=== PATIENT | male | born 1955 | race African-American/Black ===

== ENCOUNTER 2017-10-29 12:06 | Emergency (ER) | payer MEDICARE, MEDICAID ==
[2017-10-29 13:23] LABS: ANION GAP 31 (8-16); CALCIUM 9.1 mg/dl (8.4-10.2); CARBON DIOXIDE 13 mmol/L (21-31); CHLORIDE 112 mmol/L (97-110); GLUCOSE 80 mg/dl (70-220); SODIUM 148 mmol/L (135-144)
[2017-10-29 13:29] LABS: POTASSIUM 7.6 mmol/L (3.5-5.1)
[2017-10-29 13:30] LABS: CREATININE 22.18 mg/dl (0.61-1.24)
[2017-10-29 13:33] LABS: BLOOD UREA NITROGEN 144 mg/dl (7-20)
[2017-10-29] MEDS: CA CHLORIDE 10% 10 ML SYRINGE IV (13:54)
[2017-10-29] MEDS: INSULIN REGULAR, HUMAN 100 UNIT/1 ML 3ML VIAL IV (13:54)
[2017-10-29] MEDS: NA POLYST SULFON 15 GM/60 ML BTL PO (13:54)
[2017-10-29] MEDS: ALBUTEROL 0.5% (NEB) 2.5 MG/0.5 ML AMP INH (13:54)
[2017-10-29] MEDS: NA BICARBONATE 8.4% 50 ML SYG IV (13:54)
[2017-10-29] MEDS: DEXTROSE 50% 50 ML SYRINGE IV (16:13)
== END 2017-10-29 20:50 | disposition home or self-care (01) ==
LOC: E/R 12:06
DX: N18.6 End stage renal disease (principal); E87.5 Hyperkalemia; I12.0 Hypertensive chronic kidney disease with stage 5 chronic kidney disease or end stage renal disease; F17.210 Nicotine dependence, cigarettes, uncomplicated; R40.2142 Coma scale, eyes open, spontaneous, at arrival to emergency department; R40.2252 Coma scale, best verbal response, oriented, at arrival to emergency department; R40.2362 Coma scale, best motor response, obeys commands, at arrival to emergency department; Z99.2 Dependence on renal dialysis; Z98.61 Coronary angioplasty status; Z79.82 Long term (current) use of aspirin
CPT/HCPCS: 80048; 90935; 93005; 99284-25

== ENCOUNTER 2017-12-18 08:01 | Inpatient (IN) | payer MEDICARE, MEDICAID ==
[2017-12-18 09:05] LABS: ADD MAN DIFF? NO
[2017-12-18 09:12] LABS: BASOPHILS % 0.3 % (0.0-2.0); EOSINOPHILS % 0.1 % (0.0-7.0); HEMATOCRIT 29.7 % (42.0-52.0); HEMOGLOBIN 9.2 g/dl (14.0-18.0); LYMPHOCYTES # 0.7 10^3/ul (0.8-2.9); LYMPHOCYTES % 6.1 % (15.0-51.0); MEAN CORPUSCULAR HEMOGLOBIN 32.7 pg (29.0-33.0); MEAN CORPUSCULAR VOLUME 105.7 fl (82.0-101.0); MONOCYTE # 1.4 10^3/ul (0.3-0.9); MONOCYTES % 11.7 % (0.0-11.0); NEUTROPHIL # 9.4 10^3/ul (1.6-7.5); NEUTROPHILS % 80.8 % (39.0-77.0); NUCLEATED RED BLOOD CELLS # 0.1 10^3/ul (0.0-0.0); NUCLEATED RED BLOOD CELLS% 0.6 /100WBC (0.0-0.0); PLATELET COUNT 115 10^3/UL (140-415); POSITIVE DIFF @See below; RED BLOOD COUNT 2.81 10^6/ul (4.70-6.10); RED CELL DISTRIBUTION WIDTH 20.4 % (11.5-14.5)
[2017-12-18 09:12] LABS: WHITE BLOOD COUNT 11.7 10^3/ul (4.8-10.8)
[2017-12-18 09:25] LABS: LACTIC ACID 1.9 mmol/L (0.5-2.0)
[2017-12-18 09:26] LABS: ALANINE AMINOTRANSFERASE 35 IU/L (13-69); ALBUMIN 4.2 g/dl (3.3-4.9); ALBUMIN/GLOBULIN RATIO 1.16; ALKALINE PHOSPHATASE 79 IU/L (42-121); ANION GAP 22 (8-16); ASPARTATE AMINO TRANSFERASE 38 IU/L (15-46); BLOOD UREA NITROGEN 64 mg/dl (7-20); CALCIUM 10.4 mg/dl (8.4-10.2); CARBON DIOXIDE 24 mmol/L (21-31); CHLORIDE 100 mmol/L (97-110); CREATININE 10.98 mg/dl (0.61-1.24); GLUCOSE 113 mg/dl (70-220); SODIUM 141 mmol/L (135-144); TOTAL PROTEIN 7.8 g/dl (6.1-8.1)
[2017-12-18 09:33] LABS: AMMONIA < 9 umol/l (9-30)
[2017-12-18 09:36] LABS: TROPONIN-I 0.096 ng/ml (0.00-0.12)
[2017-12-18 09:37] LABS: INR 1.13; PARTIAL THROMBOPLASTIN TIME 39.7 Sec (25.0-35.0); PROTIME 14.7 Sec (11.9-14.9); PT RATIO 1.1
[2017-12-18 09:39] LABS: ACETAMINOPHEN < 10.0 ug/ml (10.0-30.0); ETHANOL < 10.0 mg/dl; POTASSIUM 5.2 mmol/L (3.5-5.1); SALICYLATE < 1.0 mg/dl (5.0-30.0)
[2017-12-18] MEDS: CEFTRIAXONE 1 GM/50 ML (PMX) 50 ML IVPB (12:47)
[2017-12-18] MEDS: VANCOMYCIN 1 GM (PMX) 250 ML IVPB (13:18)
[2017-12-18] MEDS: ACETAMINOPHEN 325 MG TAB PO (18:22)
[2017-12-18 21:14] LABS: HEPATITIS B SURFACE ANTIGEN NEGATIVE (NEGATIVE)
[2017-12-18 21:32] LABS: HEPATITIS B SURFACE ANTIBODY NEGATIVE (NEGATIVE)
[2017-12-18] MEDS ORDERED: ACETAMINOPHEN 325 MG TAB PO (22:30)
[2017-12-18 22:44] LABS: CREATINE KINASE 151 IU/L (23-200)
[2017-12-18 22:58] LABS: TROPONIN-I 0.101 ng/ml (0.00-0.12)
[2017-12-18] MEDS ORDERED: VANCOMYCIN IV PER PHARMACY XX (23:00)
[2017-12-19] MEDS: ACETAMINOPHEN 325 MG TAB PO (02:31)
[2017-12-19 05:34] LABS: HEMATOCRIT 29.2 % (42.0-52.0); MEAN CORPUSCULAR HEMOGLOBIN 32.1 pg (29.0-33.0); MEAN CORPUSCULAR HGB CONC 30.8 g/dl (32.0-37.0); MEAN CORPUSCULAR VOLUME 104.3 fl (82.0-101.0); MEAN PLATELET VOLUME 12.7 fl (7.4-10.4); NUCLEATED RED BLOOD CELLS% 0.6 /100WBC (0.0-0.0); PLATELET COUNT 104 10^3/UL (140-415); POSITIVE DIFF @See below; RED CELL DISTRIBUTION WIDTH 19.9 % (11.5-14.5)
[2017-12-19 05:34] LABS: WHITE BLOOD COUNT 8.9 10^3/ul (4.8-10.8)
[2017-12-19 05:51] LABS: CREATINE KINASE 129 IU/L (23-200)
[2017-12-19 05:56] LABS: ANION GAP 22 (8-16); BLOOD UREA NITROGEN 53 mg/dl (7-20); CALCIUM 10.6 mg/dl (8.4-10.2); CARBON DIOXIDE 24 mmol/L (21-31); CHLORIDE 100 mmol/L (97-110); CHOL/HDL RATIO 4.4 RATIO; CHOLESTEROL 170 mg/dl (100-200); GLUCOSE 132 mg/dl (70-220); HDL CHOLESTEROL 38 mg/dl (30-78); LDL CHOLESTEROL,CALCULATED 80 mg/dl; MAGNESIUM 2.2 mg/dl (1.7-2.5); PHOSPHORUS 8.5 mg/dl (2.5-4.9); POTASSIUM 4.7 mmol/L (3.5-5.1); SODIUM 141 mmol/L (135-144); TRIGLYCERIDES 261 mg/dl (0-149)
[2017-12-19 06:02] LABS: CK INDEX 1.1; TROPONIN-I 0.077 ng/ml (0.00-0.12)
[2017-12-19 06:07] LABS: CK-MB 1.42 ng/ml (0.0-2.4)
[2017-12-19 06:12] LABS: ADD MAN DIFF? YES
[2017-12-19 06:44] LABS: IRON 16 ug/dl (35-150)
[2017-12-19 06:55] LABS: % IRON SATURATION 9 % SAT (22-52); TOTAL IRON BINDING CAPACITY 171 ug/dl (241-421)
[2017-12-19] MEDS: SEVELAMER 800 MG TAB PO ×3 (07:35→17:37)
[2017-12-19 07:42] LABS: ANISOCYTOSIS 2+ (0-0); BAND NEUTROPHILS #M 0.4 10^3/ul (0.0-0.6); BAND NEUTROPHILS % (M) 5 % (0-4); ERYTHROBLAST% (NRBC) (M) 1 % (0-0); GIANT THROMBO% (M) 2 % (0-0); LYMPHOCYTES #M 0.5 10^3/ul (0.8-2.9); LYMPHOCYTES % (M) 6 % (15-51); MONOCYTE #M 0.7 10^3/ul (0.3-0.9); MONOCYTES % (M) 8 % (0-11); PLATELET ESTIMATE DECREASED; POIKILOCYTOSIS 1+ (0-0); POLYCHROMASIA 3+ (0-0); REACTIVE LYMPHOCYTES #M 0.3 10^3/ul (0.0-0.0); REACTIVE LYMPHOCYTES% (M) 4 % (0-0); SEG NEUT #M 6.9 10^3/ul (1.6-7.5); SEGMENTED NEUTROPHILS (M) % 77 % (39-77); SMUDGE%M 1 % (0-0)
[2017-12-19] MEDS: VITAMIN B COMPLEX/VIT C CAP PO (14:29)
[2017-12-19] MEDS: CINACALCET 30 MG TAB PO (14:30)
[2017-12-19] MEDS: BENAZEPRIL 20 MG TAB PO ×2 (14:30→20:28)
[2017-12-19] MEDS: ASPIRIN (EC) 81 MG TAB PO (14:30)
[2017-12-19] MEDS: ISOSORBIDE MONONITRATE(SR)30 MG TAB PO (14:33)
[2017-12-19] MEDS: CYANOCOBALAMIN 500 MCG TAB PO (14:33)
[2017-12-19] MEDS: ASCORBIC ACID 500 MG TAB PO (14:34)
[2017-12-19] MEDS: FOLIC ACID 1 MG TAB PO (14:34)
[2017-12-19] MEDS: SOD FERRIC GLUC COMPLX 125 MG in SOD CHLORIDE 0.9% 100 ML IVPB (17:32)
[2017-12-19] MEDS: CHOLECALCIFEROL 1,000 UNIT TAB PO (17:35)
[2017-12-19] MEDS: DOCUSATE SODIUM 100 MG CAP PO (20:27)
[2017-12-19] MEDS ORDERED: CEFEPIME 1GM/50 ML (PMX) 50 ML IVPB (21:00)
[2017-12-19] MEDS: EPOETIN 10000 UNITS/1 ML INJ (ESRD) SC (21:05)
[2017-12-19] MEDS: HEPARIN 5,000 UNIT/0.5 ML VIAL SC (21:06)
[2017-12-20 05:48] LABS: ADD MAN DIFF? NO
[2017-12-20 05:56] LABS: WHITE BLOOD COUNT 7.7 10^3/ul (4.8-10.8)
[2017-12-20 05:56] LABS: ABNORMAL IP MESSAGE 1; BASOPHILS % 0.3 % (0.0-2.0); EOSINOPHILS # 0.1 10^3/ul (0.0-0.5); EOSINOPHILS % 0.8 % (0.0-7.0); HEMATOCRIT 28.2 % (42.0-52.0); HEMOGLOBIN 8.2 g/dl (14.0-18.0); LYMPHOCYTES # 0.9 10^3/ul (0.8-2.9); LYMPHOCYTES % 11.9 % (15.0-51.0); MEAN CORPUSCULAR HEMOGLOBIN 32.3 pg (29.0-33.0); MEAN CORPUSCULAR HGB CONC 29.1 g/dl (32.0-37.0); MEAN PLATELET VOLUME 12.9 fl (7.4-10.4); MONOCYTE # 1.3 10^3/ul (0.3-0.9); MONOCYTES % 17.1 % (0.0-11.0); NEUTROPHIL # 5.4 10^3/ul (1.6-7.5); NEUTROPHILS % 69.3 % (39.0-77.0); NUCLEATED RED BLOOD CELLS # 0.1 10^3/ul (0.0-0.0); NUCLEATED RED BLOOD CELLS% 0.6 /100WBC (0.0-0.0); PLATELET COUNT 90 10^3/UL (140-415); POSITIVE DIFF @See below; RED BLOOD COUNT 2.54 10^6/ul (4.70-6.10)
[2017-12-20 06:22] LABS: ANION GAP 24 (8-16); BLOOD UREA NITROGEN 89 mg/dl (7-20); CALCIUM 9.8 mg/dl (8.4-10.2); CARBON DIOXIDE 19 mmol/L (21-31); CHLORIDE 96 mmol/L (97-110); CREATININE 9.95 mg/dl (0.61-1.24); GLUCOSE 122 mg/dl (70-220); POTASSIUM 4.7 mmol/L (3.5-5.1); SODIUM 134 mmol/L (135-144)
[2017-12-20 06:35] LABS: VANCOMYCIN,RANDOM < 5.0 ug/ml
[2017-12-20] MEDS: ISOSORBIDE MONONITRATE(SR)30 MG TAB PO (09:00)
[2017-12-20] MEDS: BENAZEPRIL 20 MG TAB PO ×2 (09:00→20:50)
[2017-12-20] MEDS: FOLIC ACID 1 MG TAB PO (09:14)
[2017-12-20] MEDS: VITAMIN B COMPLEX/VIT C CAP PO (09:15)
[2017-12-20] MEDS: CYANOCOBALAMIN 500 MCG TAB PO (09:15)
[2017-12-20] MEDS: ASPIRIN (EC) 81 MG TAB PO (09:15)
[2017-12-20] MEDS: ASCORBIC ACID 500 MG TAB PO (09:15)
[2017-12-20] MEDS: CHOLECALCIFEROL 1,000 UNIT TAB PO (09:15)
[2017-12-20] MEDS: CINACALCET 30 MG TAB PO (09:15)
[2017-12-20] MEDS: HEPARIN 5,000 UNIT/0.5 ML VIAL SC ×2 (09:25→21:10)
[2017-12-20] MEDS: SEVELAMER 400 MG TAB PO ×2 (12:26→17:35)
[2017-12-20] MEDS: HEPARIN 1000 UNITS/ML 10 ML INJ CATHETER (18:44)
[2017-12-20] MEDS: RIFAMPIN 300 MG CAP PO (20:48)
[2017-12-20] MEDS: VANCOMYCIN 1.25 GM in SOD CHLORIDE 0.9% 250 ML IVPB (20:48)
[2017-12-20] MEDS: DOCUSATE SODIUM 100 MG CAP PO (20:49)
[2017-12-21] MEDS: SOD FERRIC GLUC COMPLX 125 MG in SOD CHLORIDE 0.9% 100 ML IVPB ×2 (00:05→17:25)
[2017-12-21 05:35] LABS: ADD MAN DIFF? NO
[2017-12-21 05:36] LABS: ABNORMAL IP MESSAGE 1; BASOPHILS % 0.3 % (0.0-2.0); EOSINOPHILS % 0.3 % (0.0-7.0); HEMATOCRIT 26.5 % (42.0-52.0); LYMPHOCYTES # 0.7 10^3/ul (0.8-2.9); LYMPHOCYTES % 6.9 % (15.0-51.0); MEAN CORPUSCULAR HEMOGLOBIN 31.4 pg (29.0-33.0); MEAN CORPUSCULAR HGB CONC 30.2 g/dl (32.0-37.0); MEAN CORPUSCULAR VOLUME 103.9 fl (82.0-101.0); MONOCYTE # 1.9 10^3/ul (0.3-0.9); MONOCYTES % 19.9 % (0.0-11.0); NEUTROPHIL # 6.7 10^3/ul (1.6-7.5); NEUTROPHILS % 71.9 % (39.0-77.0); NUCLEATED RED BLOOD CELLS% 0.2 /100WBC (0.0-0.0); PLATELET COUNT 126 10^3/UL (140-415); POSITIVE DIFF @See below; RED BLOOD COUNT 2.55 10^6/ul (4.70-6.10); RED CELL DISTRIBUTION WIDTH 20.3 % (11.5-14.5)
[2017-12-21 05:36] LABS: WHITE BLOOD COUNT 9.4 10^3/ul (4.8-10.8)
[2017-12-21 06:21] LABS: ANION GAP 24 (8-16); BLOOD UREA NITROGEN 48 mg/dl (7-20); CALCIUM 9.5 mg/dl (8.4-10.2); CARBON DIOXIDE 25 mmol/L (21-31); CHLORIDE 102 mmol/L (97-110); CREATININE 6.57 mg/dl (0.61-1.24); GLUCOSE 129 mg/dl (70-220); POTASSIUM 4.6 mmol/L (3.5-5.1); SODIUM 146 mmol/L (135-144)
[2017-12-21] MEDS: HEPARIN 5,000 UNIT/0.5 ML VIAL SC ×2 (09:37→21:22)
[2017-12-21] MEDS: CHOLECALCIFEROL 1,000 UNIT TAB PO (09:38)
[2017-12-21] MEDS: VITAMIN B COMPLEX/VIT C CAP PO (09:38)
[2017-12-21] MEDS: CYANOCOBALAMIN 500 MCG TAB PO (09:38)
[2017-12-21] MEDS: ISOSORBIDE MONONITRATE(SR)30 MG TAB PO (09:38)
[2017-12-21] MEDS: RIFAMPIN 300 MG CAP PO (09:38)
[2017-12-21] MEDS: ASCORBIC ACID 500 MG TAB PO (09:38)
[2017-12-21] MEDS: ASPIRIN (EC) 81 MG TAB PO (09:38)
[2017-12-21] MEDS: BENAZEPRIL 20 MG TAB PO ×2 (09:38→21:21)
[2017-12-21] MEDS: FOLIC ACID 1 MG TAB PO (09:39)
[2017-12-21] MEDS: CINACALCET 30 MG TAB PO (09:39)
[2017-12-21] MEDS: SEVELAMER 400 MG TAB PO ×3 (09:39→17:23)
[2017-12-21] MEDS: EPOETIN 10000 UNITS/1 ML INJ (ESRD) SC (17:24)
[2017-12-21] MEDS: LACTOBACILLUS RHAMNOSUS CAP PO (21:20)
[2017-12-21] MEDS: FAMOTIDINE 20 MG TAB PO (21:21)
[2017-12-21] MEDS: DOCUSATE SODIUM 100 MG CAP PO (21:21)
[2017-12-22 06:09] LABS: ADD MAN DIFF? NO
[2017-12-22 06:17] LABS: BASOPHILS % 0.4 % (0.0-2.0); EOSINOPHILS # 0.1 10^3/ul (0.0-0.5); EOSINOPHILS % 1.2 % (0.0-7.0); HEMATOCRIT 22.7 % (42.0-52.0); LYMPHOCYTES # 0.8 10^3/ul (0.8-2.9); LYMPHOCYTES % 8.8 % (15.0-51.0); MEAN CORPUSCULAR HGB CONC 30.8 g/dl (32.0-37.0); MEAN CORPUSCULAR VOLUME 103.7 fl (82.0-101.0); MEAN PLATELET VOLUME 12.3 fl (7.4-10.4); MONOCYTE # 1.4 10^3/ul (0.3-0.9); MONOCYTES % 14.5 % (0.0-11.0); NEUTROPHIL # 7.1 10^3/ul (1.6-7.5); NEUTROPHILS % 73.9 % (39.0-77.0); NUCLEATED RED BLOOD CELLS% 0.2 /100WBC (0.0-0.0); PLATELET COUNT 161 10^3/UL (140-415); RED BLOOD COUNT 2.19 10^6/ul (4.70-6.10); RED CELL DISTRIBUTION WIDTH 20.2 % (11.5-14.5)
[2017-12-22 06:17] LABS: WHITE BLOOD COUNT 9.5 10^3/ul (4.8-10.8)
[2017-12-22 06:45] LABS: ALANINE AMINOTRANSFERASE 33 IU/L (13-69); ALBUMIN 3.5 g/dl (3.3-4.9); ALBUMIN/GLOBULIN RATIO 1.02; ALKALINE PHOSPHATASE 82 IU/L (42-121); ANION GAP 23 (8-16); ASPARTATE AMINO TRANSFERASE 18 IU/L (15-46); BILIRUBIN,INDIRECT 0.1 mg/dl (0-1.1); BILIRUBIN,TOTAL 0.1 mg/dl (0.2-1.3); BLOOD UREA NITROGEN 75 mg/dl (7-20); CALCIUM 9.3 mg/dl (8.4-10.2); CARBON DIOXIDE 22 mmol/L (21-31); CHLORIDE 103 mmol/L (97-110); CREATININE 8.88 mg/dl (0.61-1.24); GLUCOSE 125 mg/dl (70-220); POTASSIUM 4.8 mmol/L (3.5-5.1); SODIUM 143 mmol/L (135-144); TOTAL PROTEIN 6.9 g/dl (6.1-8.1)
[2017-12-22 06:47] LABS: INR 1.14; PROTIME 14.8 Sec (11.9-14.9); PT RATIO 1.2
[2017-12-22 07:51] LABS: HEMOGLOBIN A1C 5.4 % (0-5.9)
[2017-12-22] MEDS: CYANOCOBALAMIN 500 MCG TAB PO (08:27)
[2017-12-22] MEDS: SEVELAMER 400 MG TAB PO ×3 (08:28→17:36)
[2017-12-22] MEDS: VITAMIN B COMPLEX/VIT C CAP PO (08:28)
[2017-12-22] MEDS: BENAZEPRIL 20 MG TAB PO ×2 (08:28→21:16)
[2017-12-22] MEDS: CINACALCET 30 MG TAB PO (08:28)
[2017-12-22] MEDS: ASPIRIN (EC) 81 MG TAB PO (08:29)
[2017-12-22] MEDS: RIFAMPIN 300 MG CAP PO (08:29)
[2017-12-22] MEDS: LACTOBACILLUS RHAMNOSUS CAP PO ×2 (08:29→21:15)
[2017-12-22] MEDS: ASCORBIC ACID 500 MG TAB PO (08:29)
[2017-12-22] MEDS: FOLIC ACID 1 MG TAB PO (08:29)
[2017-12-22] MEDS: ISOSORBIDE MONONITRATE(SR)30 MG TAB PO (08:29)
[2017-12-22] MEDS: HEPARIN 5,000 UNIT/0.5 ML VIAL SC ×2 (08:31→21:14)
[2017-12-22] MEDS: ACETAMINOPHEN 325 MG TAB PO (09:45)
[2017-12-22] MEDS: CHOLECALCIFEROL 1,000 UNIT TAB PO (09:45)
[2017-12-22] MEDS: SOD FERRIC GLUC COMPLX 125 MG in SOD CHLORIDE 0.9% 100 ML IVPB (16:45)
[2017-12-22] MEDS: DOCUSATE SODIUM 100 MG CAP PO (21:15)
[2017-12-22] MEDS: FAMOTIDINE 20 MG TAB PO (21:15)
[2017-12-23 05:00] LABS: ADD MAN DIFF? NO
[2017-12-23 05:02] LABS: WHITE BLOOD COUNT 8.2 10^3/ul (4.8-10.8)
[2017-12-23 05:02] LABS: BASOPHILS % 0.2 % (0.0-2.0); EOSINOPHILS # 0.2 10^3/ul (0.0-0.5); EOSINOPHILS % 2.4 % (0.0-7.0); HEMATOCRIT 23.6 % (42.0-52.0); LYMPHOCYTES # 0.8 10^3/ul (0.8-2.9); LYMPHOCYTES % 9.6 % (15.0-51.0); MEAN CORPUSCULAR HEMOGLOBIN 31.3 pg (29.0-33.0); MEAN CORPUSCULAR HGB CONC 29.7 g/dl (32.0-37.0); MEAN CORPUSCULAR VOLUME 105.4 fl (82.0-101.0); MONOCYTE # 1.2 10^3/ul (0.3-0.9); MONOCYTES % 14.9 % (0.0-11.0); NEUTROPHIL # 5.8 10^3/ul (1.6-7.5); NEUTROPHILS % 71.2 % (39.0-77.0); PLATELET COUNT 244 10^3/UL (140-415); RED BLOOD COUNT 2.24 10^6/ul (4.70-6.10); RED CELL DISTRIBUTION WIDTH 20.4 % (11.5-14.5)
[2017-12-23 05:26] LABS: ALANINE AMINOTRANSFERASE 32 IU/L (13-69); ALBUMIN 3.5 g/dl (3.3-4.9); ALBUMIN/GLOBULIN RATIO 1.02; ALKALINE PHOSPHATASE 100 IU/L (42-121); ANION GAP 26 (8-16); ASPARTATE AMINO TRANSFERASE 11 IU/L (15-46); BLOOD UREA NITROGEN 94 mg/dl (7-20); CALCIUM 9.2 mg/dl (8.4-10.2); CARBON DIOXIDE 19 mmol/L (21-31); CHLORIDE 102 mmol/L (97-110); CREATININE 10.91 mg/dl (0.61-1.24); GLUCOSE 123 mg/dl (70-220); MAGNESIUM 2.8 mg/dl (1.7-2.5); PHOSPHORUS 7.6 mg/dl (2.5-4.9); POTASSIUM 4.6 mmol/L (3.5-5.1); SODIUM 142 mmol/L (135-144); TOTAL PROTEIN 6.9 g/dl (6.1-8.1)
[2017-12-23 05:27] LABS: VANCOMYCIN,RANDOM 13.5 ug/ml
[2017-12-23] MEDS: SEVELAMER 400 MG TAB PO ×3 (07:35→17:05)
[2017-12-23] MEDS: LACTOBACILLUS RHAMNOSUS CAP PO ×2 (08:15→20:30)
[2017-12-23] MEDS: VITAMIN B COMPLEX/VIT C CAP PO (08:15)
[2017-12-23] MEDS: CINACALCET 30 MG TAB PO (08:16)
[2017-12-23] MEDS: BENAZEPRIL 20 MG TAB PO ×3 (08:16→20:31)
[2017-12-23] MEDS: ISOSORBIDE MONONITRATE(SR)30 MG TAB PO ×2 (08:16→17:06)
[2017-12-23] MEDS: ASPIRIN (EC) 81 MG TAB PO (08:16)
[2017-12-23] MEDS: FOLIC ACID 1 MG TAB PO (08:16)
[2017-12-23] MEDS: CYANOCOBALAMIN 500 MCG TAB PO (08:16)
[2017-12-23] MEDS: RIFAMPIN 300 MG CAP PO (08:16)
[2017-12-23] MEDS: CHOLECALCIFEROL 1,000 UNIT TAB PO (08:17)
[2017-12-23] MEDS: ASCORBIC ACID 500 MG TAB PO (08:17)
[2017-12-23] MEDS: HEPARIN 5,000 UNIT/0.5 ML VIAL SC ×2 (08:17→20:35)
[2017-12-23 10:19] LABS: HEPATITIS B SURFACE ANTIGEN NEGATIVE (NEGATIVE)
[2017-12-23 11:48] LABS: IMMEDIATE SPIN CROSSMATCH 1 1
[2017-12-23] MEDS ORDERED: LIDOCAINE 1% (MDV) 20 ML INJ (15:26)
[2017-12-23] MEDS: ACETAMINOPHEN 325 MG TAB PO (17:05)
[2017-12-23] MEDS: SOD FERRIC GLUC COMPLX 125 MG in SOD CHLORIDE 0.9% 100 ML IVPB (17:05)
[2017-12-23] MEDS: VANCOMYCIN 1.25 GM in SOD CHLORIDE 0.9% 250 ML IVPB (18:37)
[2017-12-23] MEDS: DOCUSATE SODIUM 100 MG CAP PO (20:30)
[2017-12-23] MEDS: FAMOTIDINE 20 MG TAB PO (20:30)
[2017-12-24 06:50] LABS: ADD MAN DIFF? NO
[2017-12-24 06:58] LABS: ABNORMAL IP MESSAGE 1; BASOPHILS % 0.4 % (0.0-2.0); EOSINOPHILS # 0.2 10^3/ul (0.0-0.5); EOSINOPHILS % 2.4 % (0.0-7.0); HEMATOCRIT 28.5 % (42.0-52.0); HEMOGLOBIN 8.7 g/dl (14.0-18.0); LYMPHOCYTES # 0.7 10^3/ul (0.8-2.9); LYMPHOCYTES % 8.5 % (15.0-51.0); MEAN CORPUSCULAR HEMOGLOBIN 31.1 pg (29.0-33.0); MEAN CORPUSCULAR HGB CONC 30.5 g/dl (32.0-37.0); MEAN CORPUSCULAR VOLUME 101.8 fl (82.0-101.0); MEAN PLATELET VOLUME 11.6 fl (7.4-10.4); MONOCYTES % 12.3 % (0.0-11.0); NEUTROPHILS % 74.7 % (39.0-77.0); PLATELET COUNT 303 10^3/UL (140-415); POSITIVE DIFF @See below; RED CELL DISTRIBUTION WIDTH 22.8 % (11.5-14.5)
[2017-12-24 07:27] LABS: ANION GAP 22 (8-16); BLOOD UREA NITROGEN 55 mg/dl (7-20); CALCIUM 9.6 mg/dl (8.4-10.2); CARBON DIOXIDE 29 mmol/L (21-31); CHLORIDE 95 mmol/L (97-110); CREATININE 7.17 mg/dl (0.61-1.24); GLUCOSE 202 mg/dl (70-220); MAGNESIUM 2.1 mg/dl (1.7-2.5); POTASSIUM 4.3 mmol/L (3.5-5.1); SODIUM 142 mmol/L (135-144)
[2017-12-24] MEDS: LACTOBACILLUS RHAMNOSUS CAP PO ×2 (08:43→20:59)
[2017-12-24] MEDS: VITAMIN B COMPLEX/VIT C CAP PO (08:45)
[2017-12-24] MEDS: CINACALCET 30 MG TAB PO (08:46)
[2017-12-24] MEDS: RIFAMPIN 300 MG CAP PO (08:46)
[2017-12-24] MEDS: HEPARIN 5,000 UNIT/0.5 ML VIAL SC ×2 (08:46→21:00)
[2017-12-24] MEDS: ASCORBIC ACID 500 MG TAB PO (08:47)
[2017-12-24] MEDS: ISOSORBIDE MONONITRATE(SR)30 MG TAB PO (08:47)
[2017-12-24] MEDS: FOLIC ACID 1 MG TAB PO (08:47)
[2017-12-24] MEDS: CYANOCOBALAMIN 500 MCG TAB PO (08:47)
[2017-12-24] MEDS: ASPIRIN (EC) 81 MG TAB PO (08:47)
[2017-12-24] MEDS: BENAZEPRIL 20 MG TAB PO ×2 (08:48→21:00)
[2017-12-24] MEDS: SEVELAMER 400 MG TAB PO ×3 (08:51→17:44)
[2017-12-24] MEDS: CHOLECALCIFEROL 1,000 UNIT TAB PO (08:53)
[2017-12-24] MEDS: EPOETIN 10000 UNITS/1 ML INJ (ESRD) SC (17:45)
[2017-12-24] MEDS: DOCUSATE SODIUM 100 MG CAP PO (20:59)
[2017-12-24] MEDS: FAMOTIDINE 20 MG TAB PO (21:00)
[2017-12-25 06:33] LABS: ADD MAN DIFF? NO
[2017-12-25 06:42] LABS: BASOPHILS % 0.4 % (0.0-2.0); EOSINOPHILS # 0.3 10^3/ul (0.0-0.5); HEMATOCRIT 30.5 % (42.0-52.0); HEMOGLOBIN 9.3 g/dl (14.0-18.0); LYMPHOCYTES # 0.6 10^3/ul (0.8-2.9); LYMPHOCYTES % 7.2 % (15.0-51.0); MEAN CORPUSCULAR HEMOGLOBIN 31.2 pg (29.0-33.0); MEAN CORPUSCULAR HGB CONC 30.5 g/dl (32.0-37.0); MEAN CORPUSCULAR VOLUME 102.3 fl (82.0-101.0); MEAN PLATELET VOLUME 10.8 fl (7.4-10.4); MONOCYTE # 0.9 10^3/ul (0.3-0.9); MONOCYTES % 11.1 % (0.0-11.0); NEUTROPHIL # 6.5 10^3/ul (1.6-7.5); NEUTROPHILS % 76.4 % (39.0-77.0); PLATELET COUNT 363 10^3/UL (140-415); RED BLOOD COUNT 2.98 10^6/ul (4.70-6.10)
[2017-12-25 06:42] LABS: WHITE BLOOD COUNT 8.5 10^3/ul (4.8-10.8)
[2017-12-25 07:20] LABS: ANION GAP 25 (8-16); BLOOD UREA NITROGEN 77 mg/dl (7-20); CALCIUM 9.8 mg/dl (8.4-10.2); CARBON DIOXIDE 27 mmol/L (21-31); CHLORIDE 96 mmol/L (97-110); CREATININE 10.04 mg/dl (0.61-1.24); GLUCOSE 85 mg/dl (70-220); MAGNESIUM 2.6 mg/dl (1.7-2.5); SODIUM 143 mmol/L (135-144)
[2017-12-25] MEDS: SEVELAMER 400 MG TAB PO (08:49)
[2017-12-25] MEDS: RIFAMPIN 300 MG CAP PO (08:49)
[2017-12-25] MEDS: CINACALCET 30 MG TAB PO (08:49)
[2017-12-25] MEDS: CHOLECALCIFEROL 1,000 UNIT TAB PO (08:49)
[2017-12-25] MEDS: ASCORBIC ACID 500 MG TAB PO (08:50)
[2017-12-25] MEDS: CYANOCOBALAMIN 500 MCG TAB PO (08:50)
[2017-12-25] MEDS: ASPIRIN (EC) 81 MG TAB PO (08:50)
[2017-12-25] MEDS: HEPARIN 5,000 UNIT/0.5 ML VIAL SC ×2 (08:50→20:42)
[2017-12-25] MEDS: LACTOBACILLUS RHAMNOSUS CAP PO ×2 (08:50→20:38)
[2017-12-25] MEDS: FOLIC ACID 1 MG TAB PO (08:50)
[2017-12-25] MEDS: VITAMIN B COMPLEX/VIT C CAP PO (08:50)
[2017-12-25] MEDS: BENAZEPRIL 20 MG TAB PO ×2 (08:51→20:38)
[2017-12-25] MEDS: ISOSORBIDE MONONITRATE(SR)30 MG TAB PO (08:51)
[2017-12-25] MEDS: SEVELAMER 800 MG TAB PO ×2 (11:43→17:46)
[2017-12-25] MEDS: FAMOTIDINE 20 MG TAB PO (20:38)
[2017-12-25] MEDS: DOCUSATE SODIUM 100 MG CAP PO (20:44)
[2017-12-26 05:08] LABS: ADD MAN DIFF? NO
[2017-12-26 05:13] LABS: BASOPHIL # 0.1 10^3/ul (0.0-0.1); BASOPHILS % 0.5 % (0.0-2.0); EOSINOPHILS # 0.2 10^3/ul (0.0-0.5); EOSINOPHILS % 2.4 % (0.0-7.0); HEMATOCRIT 29.2 % (42.0-52.0); LYMPHOCYTES # 1.4 10^3/ul (0.8-2.9); LYMPHOCYTES % 14.5 % (15.0-51.0); MEAN CORPUSCULAR HEMOGLOBIN 31.3 pg (29.0-33.0); MEAN CORPUSCULAR HGB CONC 30.8 g/dl (32.0-37.0); MEAN CORPUSCULAR VOLUME 101.4 fl (82.0-101.0); MEAN PLATELET VOLUME 11.1 fl (7.4-10.4); MONOCYTE # 0.7 10^3/ul (0.3-0.9); NEUTROPHIL # 7.1 10^3/ul (1.6-7.5); NEUTROPHILS % 74.9 % (39.0-77.0); PLATELET COUNT 369 10^3/UL (140-415); RED BLOOD COUNT 2.88 10^6/ul (4.70-6.10); RED CELL DISTRIBUTION WIDTH 21.3 % (11.5-14.5)
[2017-12-26 05:13] LABS: WHITE BLOOD COUNT 9.5 10^3/ul (4.8-10.8)
[2017-12-26 05:39] LABS: ANION GAP 30 (8-16); BLOOD UREA NITROGEN 105 mg/dl (7-20); CALCIUM 9.4 mg/dl (8.4-10.2); CARBON DIOXIDE 19 mmol/L (21-31); CHLORIDE 97 mmol/L (97-110); CREATININE 12.52 mg/dl (0.61-1.24); GLUCOSE 86 mg/dl (70-220); MAGNESIUM 2.7 mg/dl (1.7-2.5); PHOSPHORUS 8.6 mg/dl (2.5-4.9); SODIUM 140 mmol/L (135-144)
[2017-12-26 05:43] LABS: POTASSIUM 6.1 mmol/L (3.5-5.1)
[2017-12-26] MEDS: NA POLYST SULFON 15 GM/60 ML BTL PO (06:10)
[2017-12-26] MEDS: CALCIUM GLUCONATE 10% 1 GM in DEXTROSE 5% 100 ML IVPB (06:30)
[2017-12-26] MEDS: HEPARIN 5,000 UNIT/0.5 ML VIAL SC ×2 (09:00→21:53)
[2017-12-26] MEDS: ASPIRIN (EC) 81 MG TAB PO (09:00)
[2017-12-26] MEDS: BENAZEPRIL 20 MG TAB PO ×2 (09:00→20:49)
[2017-12-26] MEDS: ISOSORBIDE MONONITRATE(SR)30 MG TAB PO (09:00)
[2017-12-26] MEDS: CHOLECALCIFEROL 1,000 UNIT TAB PO (09:00)
[2017-12-26] MEDS: ASCORBIC ACID 500 MG TAB PO (09:28)
[2017-12-26] MEDS: FOLIC ACID 1 MG TAB PO (09:28)
[2017-12-26] MEDS: VITAMIN B COMPLEX/VIT C CAP PO (09:28)
[2017-12-26] MEDS: SEVELAMER 800 MG TAB PO ×3 (09:28→17:57)
[2017-12-26] MEDS: LACTOBACILLUS RHAMNOSUS CAP PO ×2 (09:28→20:49)
[2017-12-26] MEDS: CINACALCET 30 MG TAB PO (09:28)
[2017-12-26] MEDS: RIFAMPIN 300 MG CAP PO (09:29)
[2017-12-26] MEDS: CYANOCOBALAMIN 500 MCG TAB PO (09:29)
[2017-12-26 14:13] LABS: ANION GAP 31 (8-16); BLOOD UREA NITROGEN 107 mg/dl (7-20); CALCIUM 9.6 mg/dl (8.4-10.2); CARBON DIOXIDE 20 mmol/L (21-31); CHLORIDE 97 mmol/L (97-110); GLUCOSE 91 mg/dl (70-220); POTASSIUM 5.9 mmol/L (3.5-5.1); SODIUM 142 mmol/L (135-144)
[2017-12-26] MEDS: ACETAMINOPHEN 325 MG TAB PO (14:15)
[2017-12-26 14:32] LABS: CREATININE 13.42 mg/dl (0.61-1.24)
[2017-12-26] MEDS: FUROSEMIDE 40 MG INJ IV (16:04)
[2017-12-26] MEDS: EPOETIN 10000 UNITS/1 ML INJ (ESRD) SC (17:59)
[2017-12-26] MEDS: FAMOTIDINE 20 MG TAB PO (20:49)
[2017-12-26] MEDS ORDERED: LIDOCAINE 1% (MDV) 20 ML INJ (20:57)
[2017-12-26] MEDS ORDERED: AMIKACIN IV PER PHARMACY XX (22:00)
[2017-12-26] MEDS: LIDOCAINE 1% (MDV) 20 ML INJ SC (22:56)
[2017-12-27 05:53] LABS: ADD MAN DIFF? NO
[2017-12-27 06:05] LABS: BASOPHILS % 0.1 % (0.0-2.0); EOSINOPHILS # 0.1 10^3/ul (0.0-0.5); EOSINOPHILS % 0.9 % (0.0-7.0); HEMATOCRIT 24.2 % (42.0-52.0); HEMOGLOBIN 7.3 g/dl (14.0-18.0); MEAN CORPUSCULAR HEMOGLOBIN 31.1 pg (29.0-33.0); MEAN CORPUSCULAR HGB CONC 30.2 g/dl (32.0-37.0); MEAN PLATELET VOLUME 10.7 fl (7.4-10.4); MONOCYTE # 0.9 10^3/ul (0.3-0.9); MONOCYTES % 9.9 % (0.0-11.0); NEUTROPHIL # 6.8 10^3/ul (1.6-7.5); PLATELET COUNT 324 10^3/UL (140-415); RED BLOOD COUNT 2.35 10^6/ul (4.70-6.10); RED CELL DISTRIBUTION WIDTH 21.1 % (11.5-14.5)
[2017-12-27 06:05] LABS: WHITE BLOOD COUNT 8.9 10^3/ul (4.8-10.8)
[2017-12-27 06:32] LABS: VANCOMYCIN,RANDOM 15.3 ug/ml
[2017-12-27] MEDS: HEPARIN 1000 UNITS/ML 10 ML INJ CATHETER (08:45)
[2017-12-27] MEDS: BENAZEPRIL 20 MG TAB PO ×2 (09:00→20:35)
[2017-12-27] MEDS: ISOSORBIDE MONONITRATE(SR)30 MG TAB PO (09:00)
[2017-12-27] MEDS: SEVELAMER 800 MG TAB PO ×3 (09:30→18:05)
[2017-12-27] MEDS: FOLIC ACID 1 MG TAB PO (09:30)
[2017-12-27] MEDS: AMIKACIN 350 MG in SOD CHLORIDE 0.9% 100 ML IVPB (09:30)
[2017-12-27] MEDS: LACTOBACILLUS RHAMNOSUS CAP PO ×2 (09:30→22:32)
[2017-12-27] MEDS: CHOLECALCIFEROL 1,000 UNIT TAB PO (09:31)
[2017-12-27] MEDS: ASPIRIN (EC) 81 MG TAB PO (09:31)
[2017-12-27] MEDS: VITAMIN B COMPLEX/VIT C CAP PO (09:31)
[2017-12-27] MEDS: ASCORBIC ACID 500 MG TAB PO (09:32)
[2017-12-27] MEDS: RIFAMPIN 300 MG CAP PO (09:32)
[2017-12-27] MEDS: CYANOCOBALAMIN 500 MCG TAB PO (09:32)
[2017-12-27] MEDS: CINACALCET 30 MG TAB PO (09:37)
[2017-12-27] MEDS: HEPARIN 5,000 UNIT/0.5 ML VIAL SC (09:40)
[2017-12-27] MEDS: VANCOMYCIN 1 GM 250 ML IVPB (12:50)
[2017-12-27] MEDS: GUAIFENESIN 20 MG/ML 5ML CUP PO ×2 (14:27→21:17)
[2017-12-27] MEDS: ACETAMINOPHEN 325 MG TAB PO (14:28)
[2017-12-27] MEDS ORDERED: ALBUTEROL 0.083% (NEB) 2.5 MG/3 ML AMP HHN (14:30)
[2017-12-27 15:32] LABS: ANION GAP 30 (8-16); BLOOD UREA NITROGEN 100 mg/dl (7-20); CALCIUM 9.4 mg/dl (8.4-10.2); CARBON DIOXIDE 20 mmol/L (21-31); CHLORIDE 99 mmol/L (97-110); CREATININE 12.66 mg/dl (0.61-1.24); GLUCOSE 91 mg/dl (70-220); MAGNESIUM 2.6 mg/dl (1.7-2.5); POTASSIUM 5.9 mmol/L (3.5-5.1); SODIUM 143 mmol/L (135-144)
[2017-12-27] MEDS: ALBUTEROL 0.083% (NEB) 2.5 MG/3 ML AMP HHN ×2 (16:17→20:35)
[2017-12-27] MEDS: VANCOMYCIN HCL 250 MG/5ML POSYG PO ×2 (18:36→23:55)
[2017-12-27] MEDS: PANTOPRAZOLE IV 80 MG in SOD CHLORIDE 0.9% 100 ML IVPB (18:36)
[2017-12-27 18:43] LABS: HEMOGLOBIN 9.4 g/dl (14.0-18.0)
[2017-12-27] MEDS: AMIKACIN 500 MG in SOD CHLORIDE 0.9% 100 ML IVPB (18:52)
[2017-12-27] MEDS: PANTOPRAZOLE IV 80 MG in SOD CHLORIDE 0.9% 100 ML IV (19:04)
[2017-12-27] MEDS: FAMOTIDINE 20 MG TAB PO (21:17)
[2017-12-28 00:20] LABS: HEMATOCRIT 28.5 % (42.0-52.0); HEMOGLOBIN 8.6 g/dl (14.0-18.0)
[2017-12-28] MEDS: GUAIFENESIN 20 MG/ML 5ML CUP PO ×2 (02:20→08:35)
[2017-12-28] MEDS: PANTOPRAZOLE IV 80 MG in SOD CHLORIDE 0.9% 100 ML IV ×3 (02:37→22:53)
[2017-12-28] MEDS: VANCOMYCIN HCL 250 MG/5ML POSYG PO ×3 (05:26→17:06)
[2017-12-28 06:45] LABS: ADD MAN DIFF? NO
[2017-12-28 06:51] LABS: WHITE BLOOD COUNT 13.4 10^3/ul (4.8-10.8)
[2017-12-28 06:51] LABS: BASOPHILS % 0.2 % (0.0-2.0); EOSINOPHILS % 0.1 % (0.0-7.0); HEMATOCRIT 30.7 % (42.0-52.0); HEMOGLOBIN 9.1 g/dl (14.0-18.0); LYMPHOCYTES # 1.5 10^3/ul (0.8-2.9); LYMPHOCYTES % 10.9 % (15.0-51.0); MEAN CORPUSCULAR HGB CONC 29.6 g/dl (32.0-37.0); MEAN CORPUSCULAR VOLUME 101.3 fl (82.0-101.0); MEAN PLATELET VOLUME 11.5 fl (7.4-10.4); MONOCYTE # 0.9 10^3/ul (0.3-0.9); MONOCYTES % 6.4 % (0.0-11.0); NEUTROPHIL # 10.9 10^3/ul (1.6-7.5); NEUTROPHILS % 81.5 % (39.0-77.0); NUCLEATED RED BLOOD CELLS% 0.1 /100WBC (0.0-0.0); PLATELET COUNT 335 10^3/UL (140-415); RED BLOOD COUNT 3.03 10^6/ul (4.70-6.10); RED CELL DISTRIBUTION WIDTH 21.2 % (11.5-14.5)
[2017-12-28 07:05] LABS: ANION GAP 32 (8-16); BLOOD UREA NITROGEN 114 mg/dl (7-20); CALCIUM 9.6 mg/dl (8.4-10.2); CARBON DIOXIDE 17 mmol/L (21-31); CHLORIDE 100 mmol/L (97-110); CREATININE 13.91 mg/dl (0.61-1.24); GLUCOSE 87 mg/dl (70-220); SODIUM 143 mmol/L (135-144)
[2017-12-28 07:10] LABS: POTASSIUM 6.4 mmol/L (3.5-5.1)
[2017-12-28] MEDS: ISOSORBIDE MONONITRATE(SR)30 MG TAB PO (08:21)
[2017-12-28] MEDS: BENAZEPRIL 20 MG TAB PO ×2 (08:21→21:00)
[2017-12-28] MEDS: NA POLYST SULFON 15 GM/60 ML BTL PO ×2 (08:28→22:53)
[2017-12-28] MEDS: SEVELAMER 800 MG TAB PO ×3 (08:34→17:06)
[2017-12-28] MEDS: LACTOBACILLUS RHAMNOSUS CAP PO ×2 (08:34→21:00)
[2017-12-28] MEDS: CYANOCOBALAMIN 500 MCG TAB PO (08:34)
[2017-12-28] MEDS: CINACALCET 30 MG TAB PO (08:34)
[2017-12-28] MEDS: CHOLECALCIFEROL 1,000 UNIT TAB PO (08:35)
[2017-12-28] MEDS: FOLIC ACID 1 MG TAB PO (08:35)
[2017-12-28] MEDS: VITAMIN B COMPLEX/VIT C CAP PO (08:35)
[2017-12-28] MEDS: RIFAMPIN 300 MG CAP PO (08:35)
[2017-12-28] MEDS: ASCORBIC ACID 500 MG TAB PO (08:35)
[2017-12-28] MEDS: ALBUTEROL 0.083% (NEB) 2.5 MG/3 ML AMP HHN ×4 (09:23→21:10)
[2017-12-28 11:08] LABS: HEMATOCRIT 31.6 % (42.0-52.0); HEMOGLOBIN 9.5 g/dl (14.0-18.0)
[2017-12-28 11:40] LABS: POTASSIUM 6.5 mmol/L (3.5-5.1)
[2017-12-28] MEDS: SOD CHLORIDE 0.9% 2,000 ML IV (13:30)
[2017-12-28] MEDS: ALTEPLASE (CATHFLO) 2 MG INJ CATHETER ×2 (16:49)
[2017-12-28] MEDS: EPOETIN 10000 UNITS/1 ML INJ (ESRD) SC (17:06)
[2017-12-28] MEDS: FAMOTIDINE 20 MG TAB PO (21:00)
[2017-12-28] MEDS: ATORVASTATIN 20 MG TAB PO (21:00)
[2017-12-28] MEDS: SOD CHLORIDE 0.9% 500 ML IV (22:54)
[2017-12-28] MEDS: HEPARIN 1000 UNITS/ML 10 ML INJ CATHETER (23:00)
[2017-12-29] MEDS: LACTOBACILLUS RHAMNOSUS CAP PO ×4 (00:48→20:42)
[2017-12-29] MEDS: ATORVASTATIN 20 MG TAB PO ×2 (00:48→20:42)
[2017-12-29] MEDS: VANCOMYCIN HCL 250 MG/5ML POSYG PO ×5 (00:57→23:51)
[2017-12-29 02:47] LABS: POTASSIUM 5.4 mmol/L (3.5-5.1)
[2017-12-29 06:47] LABS: WHITE BLOOD COUNT 11.4 10^3/ul (4.8-10.8)
[2017-12-29 06:47] LABS: ADD MAN DIFF? NO; BASOPHILS % 0.3 % (0.0-2.0); EOSINOPHILS % 0.3 % (0.0-7.0); HEMATOCRIT 26.3 % (42.0-52.0); HEMOGLOBIN 7.7 g/dl (14.0-18.0); LYMPHOCYTES # 1.5 10^3/ul (0.8-2.9); MEAN CORPUSCULAR HEMOGLOBIN 30.2 pg (29.0-33.0); MEAN CORPUSCULAR HGB CONC 29.3 g/dl (32.0-37.0); MEAN CORPUSCULAR VOLUME 103.1 fl (82.0-101.0); MONOCYTE # 0.6 10^3/ul (0.3-0.9); MONOCYTES % 5.1 % (0.0-11.0); NEUTROPHIL # 9.1 10^3/ul (1.6-7.5); NEUTROPHILS % 80.3 % (39.0-77.0); PLATELET COUNT 290 10^3/UL (140-415); RED BLOOD COUNT 2.55 10^6/ul (4.70-6.10)
[2017-12-29 07:13] LABS: ANION GAP 30 (8-16); BLOOD UREA NITROGEN 112 mg/dl (7-20); CALCIUM 8.6 mg/dl (8.4-10.2); CARBON DIOXIDE 16 mmol/L (21-31); CHLORIDE 106 mmol/L (97-110); GLUCOSE 74 mg/dl (70-220); SODIUM 147 mmol/L (135-144)
[2017-12-29 07:28] LABS: CREATININE 13.93 mg/dl (0.61-1.24); POTASSIUM 5.3 mmol/L (3.5-5.1)
[2017-12-29] MEDS: SEVELAMER 800 MG TAB PO ×4 (08:00→16:43)
[2017-12-29] MEDS: ISOSORBIDE MONONITRATE(SR)30 MG TAB PO (08:50)
[2017-12-29] MEDS: ALBUTEROL 0.083% (NEB) 2.5 MG/3 ML AMP HHN ×4 (09:00→21:00)
[2017-12-29] MEDS: PANTOPRAZOLE IV 80 MG in SOD CHLORIDE 0.9% 100 ML IV ×2 (09:06→20:46)
[2017-12-29] MEDS: CHOLECALCIFEROL 1,000 UNIT TAB PO (09:07)
[2017-12-29] MEDS: BENAZEPRIL 20 MG TAB PO ×2 (09:08→20:43)
[2017-12-29] MEDS: CYANOCOBALAMIN 500 MCG TAB PO (09:08)
[2017-12-29] MEDS: RIFAMPIN 300 MG CAP PO (09:08)
[2017-12-29] MEDS: VITAMIN B COMPLEX/VIT C CAP PO (09:08)
[2017-12-29] MEDS: ASCORBIC ACID 500 MG TAB PO (09:09)
[2017-12-29] MEDS: CINACALCET 30 MG TAB PO (09:09)
[2017-12-29] MEDS: FOLIC ACID 1 MG TAB PO (09:09)
[2017-12-29] MEDS: FERROUS SULFATE (EC) 325 MG TAB PO ×2 (13:06→20:43)
[2017-12-29] MEDS: FAMOTIDINE 20 MG TAB PO (20:42)
[2017-12-30] MEDS: VANCOMYCIN HCL 250 MG/5ML POSYG PO ×4 (05:49→23:49)
[2017-12-30] MEDS: PANTOPRAZOLE IV 80 MG in SOD CHLORIDE 0.9% 100 ML IV ×2 (05:49→18:11)
[2017-12-30] MEDS: SEVELAMER 800 MG TAB PO ×3 (08:00→18:13)
[2017-12-30 08:17] LABS: ADD MAN DIFF? NO
[2017-12-30 08:32] LABS: WHITE BLOOD COUNT 8.7 10^3/ul (4.8-10.8)
[2017-12-30 08:32] LABS: ABNORMAL IP MESSAGE 1; BASOPHILS % 0.2 % (0.0-2.0); EOSINOPHILS # 0.1 10^3/ul (0.0-0.5); EOSINOPHILS % 0.7 % (0.0-7.0); HEMATOCRIT 23.9 % (42.0-52.0); LYMPHOCYTES # 1.2 10^3/ul (0.8-2.9); LYMPHOCYTES % 13.3 % (15.0-51.0); MEAN CORPUSCULAR HEMOGLOBIN 29.7 pg (29.0-33.0); MEAN CORPUSCULAR HGB CONC 28.9 g/dl (32.0-37.0); MEAN PLATELET VOLUME 10.8 fl (7.4-10.4); MONOCYTE # 0.4 10^3/ul (0.3-0.9); MONOCYTES % 4.6 % (0.0-11.0); NEUTROPHIL # 6.9 10^3/ul (1.6-7.5); PLATELET COUNT 312 10^3/UL (140-415); POSITIVE DIFF @See below; RED BLOOD COUNT 2.32 10^6/ul (4.70-6.10); RED CELL DISTRIBUTION WIDTH 21.2 % (11.5-14.5)
[2017-12-30 08:36] LABS: HEMOGLOBIN 6.9 g/dl (14.0-18.0)
[2017-12-30 08:48] LABS: ANION GAP 30 (8-16); CALCIUM 7.9 mg/dl (8.4-10.2); CARBON DIOXIDE 17 mmol/L (21-31); CHLORIDE 105 mmol/L (97-110); GLUCOSE 87 mg/dl (70-220); POTASSIUM 4.8 mmol/L (3.5-5.1); SODIUM 147 mmol/L (135-144)
[2017-12-30] MEDS: ALBUTEROL 0.083% (NEB) 2.5 MG/3 ML AMP HHN ×4 (08:52→13:00)
[2017-12-30 08:55] LABS: CREATININE 15.27 mg/dl (0.61-1.24)
[2017-12-30 08:59] LABS: BLOOD UREA NITROGEN 127 mg/dl (7-20)
[2017-12-30] MEDS: BENAZEPRIL 20 MG TAB PO ×2 (09:00→20:42)
[2017-12-30] MEDS: ISOSORBIDE MONONITRATE(SR)30 MG TAB PO (09:00)
[2017-12-30] MEDS: FOLIC ACID 1 MG TAB PO (09:39)
[2017-12-30] MEDS: VITAMIN B COMPLEX/VIT C CAP PO (09:39)
[2017-12-30] MEDS: CINACALCET 30 MG TAB PO (09:39)
[2017-12-30] MEDS: CHOLECALCIFEROL 1,000 UNIT TAB PO (09:39)
[2017-12-30] MEDS: LACTOBACILLUS RHAMNOSUS CAP PO ×2 (09:39→20:41)
[2017-12-30] MEDS: RIFAMPIN 300 MG CAP PO (09:39)
[2017-12-30] MEDS: FERROUS SULFATE (EC) 325 MG TAB PO ×3 (09:40→20:41)
[2017-12-30] MEDS: ASCORBIC ACID 500 MG TAB PO (09:41)
[2017-12-30] MEDS: CYANOCOBALAMIN 500 MCG TAB PO (09:42)
[2017-12-30 10:20] LABS: ANISOCYTOSIS 2+ (0-0); BAND NEUTROPHILS #M 0.2 10^3/ul (0.0-0.6); BAND NEUTROPHILS % (M) 3 % (0-4); ERYTHROBLAST% (NRBC) (M) 1 % (0-0); GIANT THROMBO% (M) 2 % (0-0); LYMPHOCYTES #M 1.3 10^3/ul (0.8-2.9); LYMPHOCYTES % (M) 16 % (15-51); METAMYELOCYTES %M 1 % (0-0); MICROCYTOSIS 1+ (0-0); MONOCYTE #M 0.6 10^3/ul (0.3-0.9); MONOCYTES % (M) 7 % (0-11); PLATELET ESTIMATE NORMAL; POIKILOCYTOSIS 2+ (0-0); POLYCHROMASIA 3+ (0-0); SEG NEUT #M 6.4 10^3/ul (1.6-7.5); SEGMENTED NEUTROPHILS (M) % 73 % (39-77); SMUDGE%M 3 % (0-0)
[2017-12-30 12:23] LABS: HEMATOCRIT 26.7 % (42.0-52.0); HEMOGLOBIN 7.8 g/dl (14.0-18.0)
[2017-12-30] MEDS: PROPOFOL 20 ML (16:11)
[2017-12-30] MEDS: LIDOCAINE 2% (SDV) 5 ML INJ (16:11)
[2017-12-30] MEDS: FAMOTIDINE 20 MG TAB PO (20:41)
[2017-12-30] MEDS: ATORVASTATIN 20 MG TAB PO (20:43)
[2017-12-31] MEDS: PANTOPRAZOLE IV 80 MG in SOD CHLORIDE 0.9% 100 ML IV ×3 (01:38→21:30)
[2017-12-31] MEDS: VANCOMYCIN HCL 250 MG/5ML POSYG PO ×3 (05:27→17:42)
[2017-12-31] MEDS: SEVELAMER 800 MG TAB PO ×3 (08:56→17:42)
[2017-12-31] MEDS: ISOSORBIDE MONONITRATE(SR)30 MG TAB PO ×2 (09:00→12:58)
[2017-12-31] MEDS: BENAZEPRIL 20 MG TAB PO ×3 (09:00→21:00)
[2017-12-31] MEDS: FOLIC ACID 1 MG TAB PO (09:38)
[2017-12-31] MEDS: CINACALCET 30 MG TAB PO (09:39)
[2017-12-31] MEDS: CYANOCOBALAMIN 500 MCG TAB PO (09:39)
[2017-12-31] MEDS: ASCORBIC ACID 500 MG TAB PO (09:39)
[2017-12-31] MEDS: RIFAMPIN 300 MG CAP PO (09:39)
[2017-12-31] MEDS: FERROUS SULFATE (EC) 325 MG TAB PO ×3 (09:39→21:00)
[2017-12-31] MEDS: CHOLECALCIFEROL 1,000 UNIT TAB PO (09:40)
[2017-12-31] MEDS: LACTOBACILLUS RHAMNOSUS CAP PO ×2 (09:43→21:00)
[2017-12-31] MEDS: VITAMIN B COMPLEX/VIT C CAP PO (09:43)
[2017-12-31] MEDS: ALTEPLASE (CATHFLO) 2 MG INJ CATHETER ×2 (12:55→12:56)
[2017-12-31] MEDS: VANCOMYCIN 1 GM 250 ML IVPB ×2 (13:00→15:39)
[2017-12-31 16:19] LABS: ADD MAN DIFF? NO
[2017-12-31 16:24] LABS: WHITE BLOOD COUNT 6.9 10^3/ul (4.8-10.8)
[2017-12-31 16:24] LABS: ABNORMAL IP MESSAGE 1; BASOPHILS % 0.1 % (0.0-2.0); EOSINOPHILS # 0.1 10^3/ul (0.0-0.5); EOSINOPHILS % 0.7 % (0.0-7.0); HEMATOCRIT 23.7 % (42.0-52.0); LYMPHOCYTES # 0.6 10^3/ul (0.8-2.9); MEAN CORPUSCULAR HEMOGLOBIN 30.3 pg (29.0-33.0); MEAN CORPUSCULAR HGB CONC 29.1 g/dl (32.0-37.0); MEAN CORPUSCULAR VOLUME 103.9 fl (82.0-101.0); MEAN PLATELET VOLUME 10.5 fl (7.4-10.4); MONOCYTE # 0.3 10^3/ul (0.3-0.9); MONOCYTES % 3.8 % (0.0-11.0); NEUTROPHIL # 5.9 10^3/ul (1.6-7.5); NUCLEATED RED BLOOD CELLS% 0.4 /100WBC (0.0-0.0); PLATELET COUNT 359 10^3/UL (140-415); POSITIVE DIFF @See below; RED BLOOD COUNT 2.28 10^6/ul (4.70-6.10); RED CELL DISTRIBUTION WIDTH 21.1 % (11.5-14.5)
[2017-12-31 16:43] LABS: ANION GAP 30 (8-16); CARBON DIOXIDE 14 mmol/L (21-31); CHLORIDE 106 mmol/L (97-110); GLUCOSE 77 mg/dl (70-220); MAGNESIUM 2.8 mg/dl (1.7-2.5); PHOSPHORUS 12.3 mg/dl (2.5-4.9); POTASSIUM 5.4 mmol/L (3.5-5.1); SODIUM 145 mmol/L (135-144)
[2017-12-31 16:51] LABS: BLOOD UREA NITROGEN 131 mg/dl (7-20); CREATININE 16.13 mg/dl (0.61-1.24); HEMOGLOBIN 6.9 g/dl (14.0-18.0)
[2017-12-31] MEDS: EPOETIN 10000 UNITS/1 ML INJ (ESRD) SC (17:43)
[2017-12-31] MEDS: ATORVASTATIN 20 MG TAB PO (21:00)
[2017-12-31] MEDS: FAMOTIDINE 20 MG TAB PO (21:00)
[2018-01-01] MEDS: HEPARIN 1000 UNITS/ML 10 ML INJ CATHETER (02:19)
[2018-01-01] MEDS: VANCOMYCIN HCL 250 MG/5ML POSYG PO ×5 (02:28→18:00)
[2018-01-01] MEDS: PANTOPRAZOLE IV 80 MG in SOD CHLORIDE 0.9% 100 ML IV ×2 (02:28→08:49)
[2018-01-01] MEDS: AMIKACIN 350 MG in SOD CHLORIDE 0.9% 100 ML IVPB (02:28)
[2018-01-01] MEDS: FERROUS SULFATE (EC) 325 MG TAB PO ×4 (02:29→21:00)
[2018-01-01] MEDS: BENAZEPRIL 20 MG TAB PO ×3 (02:29→21:00)
[2018-01-01] MEDS: ATORVASTATIN 20 MG TAB PO ×2 (02:29→21:00)
[2018-01-01] MEDS: LACTOBACILLUS RHAMNOSUS CAP PO ×4 (02:30→21:00)
[2018-01-01] MEDS: FAMOTIDINE 20 MG TAB PO ×2 (02:30→21:00)
[2018-01-01] MEDS: HALOPERIDOL 5 MG INJ IM ×2 (03:31→20:17)
[2018-01-01] MEDS: LORAZEPAM 2 MG INJ IM ×2 (07:01→22:18)
[2018-01-01] MEDS: VITAMIN B COMPLEX/VIT C CAP PO (08:49)
[2018-01-01] MEDS: ASCORBIC ACID 500 MG TAB PO (08:50)
[2018-01-01] MEDS: CHOLECALCIFEROL 1,000 UNIT TAB PO (08:50)
[2018-01-01] MEDS: CINACALCET 30 MG TAB PO (08:50)
[2018-01-01] MEDS: RIFAMPIN 300 MG CAP PO (08:50)
[2018-01-01] MEDS: CYANOCOBALAMIN 500 MCG TAB PO (08:51)
[2018-01-01] MEDS: FOLIC ACID 1 MG TAB PO (08:51)
[2018-01-01] MEDS: ISOSORBIDE MONONITRATE(SR)30 MG TAB PO (09:00)
[2018-01-01] MEDS: LANTHANUM 500 MG CHEW PO ×2 (12:00→18:05)
[2018-01-01] MEDS: SEVELAMER 800 MG TAB PO ×2 (12:00→18:05)
[2018-01-01 15:41] LABS: ABNORMAL IP MESSAGE 1; HEMATOCRIT 23.3 % (42.0-52.0); MEAN CORPUSCULAR HEMOGLOBIN 30.4 pg (29.0-33.0); MEAN CORPUSCULAR HGB CONC 29.2 g/dl (32.0-37.0); NUCLEATED RED BLOOD CELLS% 0.4 /100WBC (0.0-0.0); POSITIVE DIFF @See below; RED BLOOD COUNT 2.24 10^6/ul (4.70-6.10); RED CELL DISTRIBUTION WIDTH 21.5 % (11.5-14.5)
[2018-01-01 15:44] LABS: ADD MAN DIFF? YES; HEMOGLOBIN 6.8 g/dl (14.0-18.0); PLATELET COUNT 178 10^3/UL (140-415)
[2018-01-01 16:00] LABS: ANION GAP 24 (8-16); BLOOD UREA NITROGEN 85 mg/dl (7-20); CALCIUM 7.7 mg/dl (8.4-10.2); CARBON DIOXIDE 18 mmol/L (21-31); CHLORIDE 108 mmol/L (97-110); CREATININE 12.67 mg/dl (0.61-1.24); GLUCOSE 74 mg/dl (70-220); POTASSIUM 4.4 mmol/L (3.5-5.1); SODIUM 146 mmol/L (135-144)
[2018-01-01 16:33] LABS: ANISOCYTOSIS 1+ (0-0); BAND NEUTROPHILS #M 0.1 10^3/ul (0.0-0.6); BAND NEUTROPHILS % (M) 2 % (0-4); EOSINOPHILS % (M) 1 % (0-7); ERYTHROBLAST% (NRBC) (M) 1 % (0-0); LYMPHOCYTES #M 0.5 10^3/ul (0.8-2.9); LYMPHOCYTES % (M) 7 % (15-51); MICROCYTOSIS 1+ (0-0); MONOCYTE #M 0.3 10^3/ul (0.3-0.9); MONOCYTES % (M) 4 % (0-11); POIKILOCYTOSIS 2+ (0-0); SEG NEUT #M 6.9 10^3/ul (1.6-7.5); SEGMENTED NEUTROPHILS (M) % 86 % (39-77); SMUDGE%M 2 % (0-0)
[2018-01-01] MEDS: PANTOPRAZOLE 40 MG INJ IV (18:00)
[2018-01-01 18:59] LABS: MAGNESIUM 2.5 mg/dl (1.7-2.5)
[2018-01-01 18:59] LABS: PHOSPHORUS 6.9 mg/dl (2.5-4.9)
[2018-01-01] MEDS: ALTEPLASE (CATHFLO) 2 MG INJ CATHETER ×2 (19:38→19:39)
[2018-01-01 23:32] LABS: IMMEDIATE SPIN CROSSMATCH 1 2
[2018-01-02] MEDS ORDERED: hydrALAzine 20 MG INJ (01:20)
[2018-01-02] MEDS: hydrALAzine 20 MG INJ IV ×2 (01:25→06:20)
[2018-01-02] MEDS: ALTEPLASE (CATHFLO) 2 MG INJ CATHETER (02:47)
[2018-01-02] MEDS: LORAZEPAM 2 MG INJ IV ×2 (04:36→23:27)
[2018-01-02] MEDS: VANCOMYCIN HCL 250 MG/5ML POSYG PO ×2 (06:00)
[2018-01-02] MEDS: PANTOPRAZOLE 40 MG INJ IV ×2 (06:26→17:44)
[2018-01-02] MEDS: LANTHANUM 500 MG CHEW PO ×3 (08:00→17:42)
[2018-01-02] MEDS: SEVELAMER 800 MG TAB PO ×3 (08:00→17:43)
[2018-01-02] MEDS: LACTOBACILLUS RHAMNOSUS CAP PO ×2 (09:00→20:57)
[2018-01-02] MEDS: ISOSORBIDE MONONITRATE(SR)30 MG TAB PO (09:00)
[2018-01-02] MEDS: ASCORBIC ACID 500 MG TAB PO (09:00)
[2018-01-02] MEDS: FERROUS SULFATE (EC) 325 MG TAB PO ×3 (09:00→20:57)
[2018-01-02] MEDS: CINACALCET 30 MG TAB PO (09:00)
[2018-01-02] MEDS: CHOLECALCIFEROL 1,000 UNIT TAB PO (09:00)
[2018-01-02] MEDS: VITAMIN B COMPLEX/VIT C CAP PO (09:00)
[2018-01-02] MEDS: CYANOCOBALAMIN 500 MCG TAB PO (09:00)
[2018-01-02] MEDS: BENAZEPRIL 20 MG TAB PO ×2 (09:00→20:57)
[2018-01-02] MEDS: RIFAMPIN 300 MG CAP PO (09:00)
[2018-01-02] MEDS: FOLIC ACID 1 MG TAB PO (09:00)
[2018-01-02] MEDS: PEG/ELECTROLYTES 4L BTL NGT (09:17)
[2018-01-02 14:18] LABS: ADD MAN DIFF? NO
[2018-01-02 14:20] LABS: BASOPHILS % 0.4 % (0.0-2.0); EOSINOPHILS # 0.1 10^3/ul (0.0-0.5); HEMATOCRIT 32.9 % (42.0-52.0); HEMOGLOBIN 10.5 g/dl (14.0-18.0); LYMPHOCYTES # 0.6 10^3/ul (0.8-2.9); MEAN CORPUSCULAR HEMOGLOBIN 31.2 pg (29.0-33.0); MEAN CORPUSCULAR HGB CONC 31.9 g/dl (32.0-37.0); MEAN CORPUSCULAR VOLUME 97.6 fl (82.0-101.0); MEAN PLATELET VOLUME 9.5 fl (7.4-10.4); MONOCYTE # 0.4 10^3/ul (0.3-0.9); MONOCYTES % 4.5 % (0.0-11.0); NEUTROPHIL # 7.7 10^3/ul (1.6-7.5); NEUTROPHILS % 85.1 % (39.0-77.0); NUCLEATED RED BLOOD CELLS% 0.4 /100WBC (0.0-0.0); PLATELET COUNT 346 10^3/UL (140-415); RED BLOOD COUNT 3.37 10^6/ul (4.70-6.10); RED CELL DISTRIBUTION WIDTH 20.8 % (11.5-14.5)
[2018-01-02 14:20] LABS: WHITE BLOOD COUNT 9.1 10^3/ul (4.8-10.8)
[2018-01-02 14:42] LABS: ANION GAP 26 (8-16); BLOOD UREA NITROGEN 82 mg/dl (7-20); CALCIUM 7.8 mg/dl (8.4-10.2); CARBON DIOXIDE 16 mmol/L (21-31); CHLORIDE 110 mmol/L (97-110); CREATININE 13.94 mg/dl (0.61-1.24); GLUCOSE 66 mg/dl (70-220); MAGNESIUM 2.4 mg/dl (1.7-2.5); PHOSPHORUS 8.2 mg/dl (2.5-4.9); POTASSIUM 4.4 mmol/L (3.5-5.1); SODIUM 148 mmol/L (135-144)
[2018-01-02] MEDS: HEPARIN 1000 UNITS/ML 10 ML INJ CATHETER (18:55)
[2018-01-02] MEDS: ATORVASTATIN 20 MG TAB PO (20:57)
[2018-01-02] MEDS: FAMOTIDINE 20 MG TAB PO (20:57)
[2018-01-02] MEDS: EPOETIN 10000 UNITS/1 ML INJ (ESRD) SC (20:59)
[2018-01-02] MEDS: AMIKACIN 350 MG in SOD CHLORIDE 0.9% 100 ML IVPB (21:49)
[2018-01-03] MEDS: PANTOPRAZOLE 40 MG INJ IV ×2 (05:33→17:26)
[2018-01-03] MEDS: LANTHANUM 500 MG CHEW PO ×3 (08:00→17:25)
[2018-01-03] MEDS: SEVELAMER 800 MG TAB PO ×3 (08:00→17:25)
[2018-01-03] MEDS: FOLIC ACID 1 MG TAB PO (08:55)
[2018-01-03] MEDS: ISOSORBIDE MONONITRATE(SR)30 MG TAB PO (08:55)
[2018-01-03] MEDS: LACTOBACILLUS RHAMNOSUS CAP PO ×2 (08:55→21:00)
[2018-01-03] MEDS: FERROUS SULFATE (EC) 325 MG TAB PO ×3 (08:55→21:00)
[2018-01-03] MEDS: VITAMIN B COMPLEX/VIT C CAP PO (08:55)
[2018-01-03] MEDS: CINACALCET 30 MG TAB PO (08:56)
[2018-01-03] MEDS: RIFAMPIN 300 MG CAP PO (08:56)
[2018-01-03] MEDS: CYANOCOBALAMIN 500 MCG TAB PO (08:56)
[2018-01-03] MEDS: BENAZEPRIL 20 MG TAB PO ×2 (08:56→21:00)
[2018-01-03] MEDS: ASCORBIC ACID 500 MG TAB PO (08:56)
[2018-01-03] MEDS: CHOLECALCIFEROL 1,000 UNIT TAB PO (08:57)
[2018-01-03 10:45] LABS: ADD MAN DIFF? NO
[2018-01-03 11:02] LABS: ABNORMAL IP MESSAGE 1; BASOPHILS % 0.4 % (0.0-2.0); EOSINOPHILS # 0.1 10^3/ul (0.0-0.5); EOSINOPHILS % 1.6 % (0.0-7.0); HEMATOCRIT 34.1 % (42.0-52.0); HEMOGLOBIN 10.5 g/dl (14.0-18.0); LYMPHOCYTES # 0.5 10^3/ul (0.8-2.9); LYMPHOCYTES % 6.7 % (15.0-51.0); MEAN CORPUSCULAR HEMOGLOBIN 30.8 pg (29.0-33.0); MEAN CORPUSCULAR HGB CONC 30.8 g/dl (32.0-37.0); MEAN PLATELET VOLUME 10.1 fl (7.4-10.4); MONOCYTE # 0.6 10^3/ul (0.3-0.9); MONOCYTES % 7.6 % (0.0-11.0); NEUTROPHIL # 6.5 10^3/ul (1.6-7.5); NEUTROPHILS % 81.7 % (39.0-77.0); NUCLEATED RED BLOOD CELLS% 0.5 /100WBC (0.0-0.0); PLATELET COUNT 323 10^3/UL (140-415); POSITIVE DIFF @See below; RED BLOOD COUNT 3.41 10^6/ul (4.70-6.10); RED CELL DISTRIBUTION WIDTH 21.1 % (11.5-14.5)
[2018-01-03 11:16] LABS: ANION GAP 25 (8-16); BLOOD UREA NITROGEN 52 mg/dl (7-20); CALCIUM 8.5 mg/dl (8.4-10.2); CARBON DIOXIDE 19 mmol/L (21-31); CHLORIDE 107 mmol/L (97-110); GLUCOSE 55 mg/dl (70-220); MAGNESIUM 2.3 mg/dl (1.7-2.5); PHOSPHORUS 7.5 mg/dl (2.5-4.9); POTASSIUM 4.4 mmol/L (3.5-5.1); SODIUM 147 mmol/L (135-144)
[2018-01-03] MEDS: DEXTROSE 50% 50 ML SYRINGE IV (11:43)
[2018-01-03] MEDS ORDERED: HEPARIN 1000 UNITS/NS (A-LINE) 1,000 ML (13:49)
[2018-01-03] MEDS ORDERED: LIDOCAINE 1% (MDV) 20 ML INJ (13:49)
[2018-01-03] MEDS ORDERED: HEPARIN 1000 UNITS/ML 10 ML INJ (14:00)
[2018-01-03] MEDS ORDERED: MIDAZOLAM 1 MG/ML 2 ML INJ (14:17)
[2018-01-03] MEDS ORDERED: FENTAnyl 50 MCG/ML VIAL (14:17)
[2018-01-03] MEDS: ATORVASTATIN 20 MG TAB PO (21:00)
[2018-01-03] MEDS: FAMOTIDINE 20 MG TAB PO (21:00)
[2018-01-04] MEDS: PANTOPRAZOLE 40 MG INJ IV ×2 (05:39→17:52)
[2018-01-04 07:15] LABS: ADD MAN DIFF? NO
[2018-01-04 07:16] LABS: ABNORMAL IP MESSAGE 1; BASOPHILS % 0.4 % (0.0-2.0); EOSINOPHILS # 0.1 10^3/ul (0.0-0.5); EOSINOPHILS % 1.7 % (0.0-7.0); HEMATOCRIT 31.8 % (42.0-52.0); HEMOGLOBIN 9.9 g/dl (14.0-18.0); LYMPHOCYTES # 0.6 10^3/ul (0.8-2.9); LYMPHOCYTES % 7.5 % (15.0-51.0); MEAN CORPUSCULAR HEMOGLOBIN 30.9 pg (29.0-33.0); MEAN CORPUSCULAR HGB CONC 31.1 g/dl (32.0-37.0); MEAN CORPUSCULAR VOLUME 99.4 fl (82.0-101.0); MEAN PLATELET VOLUME 9.8 fl (7.4-10.4); MONOCYTE # 0.7 10^3/ul (0.3-0.9); MONOCYTES % 8.8 % (0.0-11.0); NEUTROPHIL # 6.2 10^3/ul (1.6-7.5); NEUTROPHILS % 79.7 % (39.0-77.0); NUCLEATED RED BLOOD CELLS% 0.5 /100WBC (0.0-0.0); PLATELET COUNT 294 10^3/UL (140-415); POSITIVE DIFF @See below; RED CELL DISTRIBUTION WIDTH 20.3 % (11.5-14.5)
[2018-01-04 07:16] LABS: WHITE BLOOD COUNT 7.8 10^3/ul (4.8-10.8)
[2018-01-04 07:45] LABS: ANION GAP 23 (8-16); BLOOD UREA NITROGEN 60 mg/dl (7-20); CALCIUM 8.5 mg/dl (8.4-10.2); CARBON DIOXIDE 22 mmol/L (21-31); CHLORIDE 107 mmol/L (97-110); CREATININE 11.78 mg/dl (0.61-1.24); GLUCOSE 116 mg/dl (70-220); POTASSIUM 4.4 mmol/L (3.5-5.1); SODIUM 148 mmol/L (135-144)
[2018-01-04 07:56] LABS: MAGNESIUM 2.3 mg/dl (1.7-2.5)
[2018-01-04 07:56] LABS: PHOSPHORUS 8.9 mg/dl (2.5-4.9)
[2018-01-04] MEDS: LANTHANUM 500 MG CHEW PO ×3 (08:00→17:07)
[2018-01-04] MEDS: SEVELAMER 800 MG TAB PO ×3 (08:00→17:07)
[2018-01-04] MEDS: LACTOBACILLUS RHAMNOSUS CAP PO (08:29)
[2018-01-04] MEDS: FERROUS SULFATE (EC) 325 MG TAB PO ×3 (08:29→22:15)
[2018-01-04] MEDS: VITAMIN B COMPLEX/VIT C CAP PO (08:29)
[2018-01-04] MEDS: FOLIC ACID 1 MG TAB PO (08:29)
[2018-01-04] MEDS: CINACALCET 30 MG TAB PO (08:30)
[2018-01-04] MEDS: ASCORBIC ACID 500 MG TAB PO (08:30)
[2018-01-04] MEDS: BENAZEPRIL 20 MG TAB PO ×2 (08:30→22:16)
[2018-01-04] MEDS: CYANOCOBALAMIN 500 MCG TAB PO (08:30)
[2018-01-04] MEDS: CHOLECALCIFEROL 1,000 UNIT TAB PO (08:30)
[2018-01-04] MEDS: ISOSORBIDE MONONITRATE(SR)30 MG TAB PO (09:00)
[2018-01-04] MEDS: RIFAMPIN 300 MG CAP PO (09:00)
[2018-01-04] MEDS: HEPARIN 1000 UNITS/ML 10 ML INJ CATHETER (10:55)
[2018-01-04 14:35] LABS: VANCOMYCIN,TROUGH 15.4 ug/ml (10.0-20.0)
[2018-01-04] MEDS: VANCOMYCIN 1 GM 250 ML IVPB (14:52)
[2018-01-04] MEDS: AMIKACIN 350 MG in SOD CHLORIDE 0.9% 100 ML IVPB (17:51)
[2018-01-04] MEDS: EPOETIN 10000 UNITS/1 ML INJ (ESRD) SC (17:52)
[2018-01-04] MEDS: FAMOTIDINE 20 MG TAB PO (22:15)
[2018-01-04] MEDS: ATORVASTATIN 20 MG TAB PO (22:15)
[2018-01-05] MEDS: LACTOBACILLUS RHAMNOSUS CAP PO ×3 (00:29→22:02)
[2018-01-05] MEDS: PANTOPRAZOLE 40 MG INJ IV ×2 (06:46→17:44)
[2018-01-05] MEDS: LANTHANUM 500 MG CHEW PO ×4 (08:00→17:35)
[2018-01-05] MEDS: SEVELAMER 800 MG TAB PO ×3 (08:00→17:35)
[2018-01-05 08:06] LABS: ADD MAN DIFF? NO
[2018-01-05 08:11] LABS: WHITE BLOOD COUNT 7.2 10^3/ul (4.8-10.8)
[2018-01-05 08:11] LABS: BASOPHIL # 0.1 10^3/ul (0.0-0.1); BASOPHILS % 0.7 % (0.0-2.0); EOSINOPHILS # 0.2 10^3/ul (0.0-0.5); EOSINOPHILS % 2.4 % (0.0-7.0); HEMATOCRIT 33.5 % (42.0-52.0); HEMOGLOBIN 10.1 g/dl (14.0-18.0); LYMPHOCYTES # 0.8 10^3/ul (0.8-2.9); LYMPHOCYTES % 11.4 % (15.0-51.0); MEAN CORPUSCULAR HEMOGLOBIN 30.6 pg (29.0-33.0); MEAN CORPUSCULAR HGB CONC 30.1 g/dl (32.0-37.0); MEAN CORPUSCULAR VOLUME 101.5 fl (82.0-101.0); MEAN PLATELET VOLUME 10.3 fl (7.4-10.4); MONOCYTE # 0.8 10^3/ul (0.3-0.9); MONOCYTES % 10.4 % (0.0-11.0); NEUTROPHIL # 5.2 10^3/ul (1.6-7.5); NEUTROPHILS % 72.9 % (39.0-77.0); NUCLEATED RED BLOOD CELLS% 0.6 /100WBC (0.0-0.0); PLATELET COUNT 226 10^3/UL (140-415); RED CELL DISTRIBUTION WIDTH 19.9 % (11.5-14.5)
[2018-01-05 08:34] LABS: PHOSPHORUS 7.3 mg/dl (2.5-4.9)
[2018-01-05 08:34] LABS: ANION GAP 21 (8-16); BLOOD UREA NITROGEN 39 mg/dl (7-20); CALCIUM 8.6 mg/dl (8.4-10.2); CARBON DIOXIDE 24 mmol/L (21-31); CHLORIDE 103 mmol/L (97-110); CREATININE 8.44 mg/dl (0.61-1.24); GLUCOSE 76 mg/dl (70-220); MAGNESIUM 2.2 mg/dl (1.7-2.5); POTASSIUM 3.8 mmol/L (3.5-5.1); SODIUM 144 mmol/L (135-144)
[2018-01-05] MEDS: RIFAMPIN 300 MG CAP PO (09:00)
[2018-01-05] MEDS: VITAMIN B COMPLEX/VIT C CAP PO (09:00)
[2018-01-05] MEDS: CHOLECALCIFEROL 1,000 UNIT TAB PO (09:00)
[2018-01-05] MEDS: CYANOCOBALAMIN 500 MCG TAB PO (09:00)
[2018-01-05] MEDS: FERROUS SULFATE (EC) 325 MG TAB PO ×4 (09:00→22:02)
[2018-01-05] MEDS: ASCORBIC ACID 500 MG TAB PO (09:00)
[2018-01-05] MEDS: FOLIC ACID 1 MG TAB PO (09:00)
[2018-01-05] MEDS: CINACALCET 30 MG TAB PO (09:42)
[2018-01-05] MEDS: ISOSORBIDE MONONITRATE(SR)30 MG TAB PO (09:43)
[2018-01-05] MEDS: BENAZEPRIL 20 MG TAB PO ×2 (09:43→22:02)
[2018-01-05] MEDS: FLUCONAZOLE 100 MG TAB PO (17:44)
[2018-01-05] MEDS: ATORVASTATIN 20 MG TAB PO (22:01)
[2018-01-05] MEDS: FAMOTIDINE 20 MG TAB PO (22:02)
[2018-01-06] MEDS: PANTOPRAZOLE 40 MG INJ IV ×3 (05:31→18:26)
[2018-01-06] MEDS: SEVELAMER 800 MG TAB PO ×3 (08:00→18:05)
[2018-01-06] MEDS: LANTHANUM 500 MG CHEW PO ×3 (08:00→18:05)
[2018-01-06 08:24] LABS: ADD MAN DIFF? NO
[2018-01-06 08:36] LABS: BASOPHILS % 0.4 % (0.0-2.0); EOSINOPHILS # 0.2 10^3/ul (0.0-0.5); EOSINOPHILS % 1.9 % (0.0-7.0); HEMATOCRIT 33.4 % (42.0-52.0); HEMOGLOBIN 10.3 g/dl (14.0-18.0); LYMPHOCYTES # 0.8 10^3/ul (0.8-2.9); LYMPHOCYTES % 9.5 % (15.0-51.0); MEAN CORPUSCULAR HEMOGLOBIN 30.9 pg (29.0-33.0); MEAN CORPUSCULAR HGB CONC 30.8 g/dl (32.0-37.0); MEAN CORPUSCULAR VOLUME 100.3 fl (82.0-101.0); MEAN PLATELET VOLUME 10.1 fl (7.4-10.4); MONOCYTE # 0.7 10^3/ul (0.3-0.9); MONOCYTES % 9.1 % (0.0-11.0); NEUTROPHIL # 6.1 10^3/ul (1.6-7.5); NEUTROPHILS % 77.1 % (39.0-77.0); NUCLEATED RED BLOOD CELLS% 0.4 /100WBC (0.0-0.0); PLATELET COUNT 227 10^3/UL (140-415); RED BLOOD COUNT 3.33 10^6/ul (4.70-6.10); RED CELL DISTRIBUTION WIDTH 19.5 % (11.5-14.5)
[2018-01-06 08:36] LABS: WHITE BLOOD COUNT 7.9 10^3/ul (4.8-10.8)
[2018-01-06] MEDS: VITAMIN B COMPLEX/VIT C CAP PO (08:45)
[2018-01-06] MEDS: LACTOBACILLUS RHAMNOSUS CAP PO ×2 (08:46→21:00)
[2018-01-06] MEDS: BENAZEPRIL 20 MG TAB PO ×2 (08:46→21:00)
[2018-01-06] MEDS: FLUCONAZOLE 100 MG TAB PO (08:46)
[2018-01-06] MEDS: ISOSORBIDE MONONITRATE(SR)30 MG TAB PO (08:46)
[2018-01-06] MEDS: FERROUS SULFATE (EC) 325 MG TAB PO ×3 (08:46→21:00)
[2018-01-06] MEDS: FOLIC ACID 1 MG TAB PO (08:46)
[2018-01-06] MEDS: CINACALCET 30 MG TAB PO (08:47)
[2018-01-06] MEDS: ASCORBIC ACID 500 MG TAB PO (08:47)
[2018-01-06] MEDS: CHOLECALCIFEROL 1,000 UNIT TAB PO (08:47)
[2018-01-06] MEDS: CYANOCOBALAMIN 500 MCG TAB PO (08:47)
[2018-01-06] MEDS: RIFAMPIN 300 MG CAP PO (08:47)
[2018-01-06 09:02] LABS: MAGNESIUM 2.2 mg/dl (1.7-2.5)
[2018-01-06 09:02] LABS: PHOSPHORUS 7.4 mg/dl (2.5-4.9)
[2018-01-06 09:12] LABS: ANION GAP 20 (8-16); BLOOD UREA NITROGEN 50 mg/dl (7-20); CALCIUM 8.2 mg/dl (8.4-10.2); CARBON DIOXIDE 22 mmol/L (21-31); CHLORIDE 106 mmol/L (97-110); CREATININE 10.69 mg/dl (0.61-1.24); GLUCOSE 161 mg/dl (70-220); POTASSIUM 3.9 mmol/L (3.5-5.1); SODIUM 144 mmol/L (135-144)
[2018-01-06 12:42] LABS: ANISOCYTOSIS 1+ (0-0); BAND NEUTROPHILS #M 0.3 10^3/ul (0.0-0.6); BAND NEUTROPHILS % (M) 5 % (0-4); BASOPHILS % (M) 1 % (0-2); GIANT THROMBO% (M) 2 % (0-0); LYMPHOCYTES #M 0.6 10^3/ul (0.8-2.9); LYMPHOCYTES % (M) 8 % (15-51); MICROCYTOSIS 1+ (0-0); MONOCYTE #M 0.3 10^3/ul (0.3-0.9); MONOCYTES % (M) 5 % (0-11); PLATELET ESTIMATE SIG DECREASED; POIKILOCYTOSIS 2+ (0-0); POLYCHROMASIA 3+ (0-0); REACTIVE LYMPHOCYTES #M 0.1 10^3/ul (0.0-0.0); REACTIVE LYMPHOCYTES% (M) 2 % (0-0); SEG NEUT #M 6.3 10^3/ul (1.6-7.5); SEGMENTED NEUTROPHILS (M) % 79 % (39-77); SMUDGE%M 1 % (0-0)
[2018-01-06] MEDS: AMIKACIN 350 MG in SOD CHLORIDE 0.9% 100 ML IVPB (18:27)
[2018-01-06] MEDS: FAMOTIDINE 20 MG TAB PO (21:00)
[2018-01-06] MEDS: ATORVASTATIN 20 MG TAB PO (21:00)
[2018-01-07] MEDS: AMIKACIN 350 MG in SOD CHLORIDE 0.9% 100 ML IVPB (00:04)
[2018-01-07] MEDS: PANTOPRAZOLE 40 MG INJ IV (05:32)
[2018-01-07] MEDS: LANTHANUM 500 MG CHEW PO ×2 (08:53→12:20)
[2018-01-07] MEDS: FLUCONAZOLE 100 MG TAB PO (08:53)
[2018-01-07] MEDS: LACTOBACILLUS RHAMNOSUS CAP PO (08:53)
[2018-01-07] MEDS: ASCORBIC ACID 500 MG TAB PO (08:54)
[2018-01-07] MEDS: FOLIC ACID 1 MG TAB PO (08:54)
[2018-01-07] MEDS: RIFAMPIN 300 MG CAP PO (08:54)
[2018-01-07] MEDS: CYANOCOBALAMIN 500 MCG TAB PO (08:54)
[2018-01-07] MEDS: CHOLECALCIFEROL 1,000 UNIT TAB PO (08:54)
[2018-01-07] MEDS: BENAZEPRIL 20 MG TAB PO (08:54)
[2018-01-07] MEDS: CINACALCET 30 MG TAB PO (08:54)
[2018-01-07] MEDS: ISOSORBIDE MONONITRATE(SR)30 MG TAB PO (08:54)
[2018-01-07] MEDS: VITAMIN B COMPLEX/VIT C CAP PO (08:54)
[2018-01-07] MEDS: FERROUS SULFATE (EC) 325 MG TAB PO ×2 (08:55→12:20)
[2018-01-07] MEDS: SEVELAMER 800 MG TAB PO ×2 (08:55→12:20)
[2018-01-07] MEDS: EPOETIN 10000 UNITS/1 ML INJ (ESRD) SC (17:10)
== END 2018-01-07 17:41 | DRG 314 ==
LOC: MS4 12-27 16:54 → E/R 08:01 → PP2 12:02
PROVIDERS: Family Medicine
PROC: 02PYX3Z Removal of Infusion Device from Great Vessel, External Approach (ICD-10-PCS; principal; 2017-12-23 15:30)
PROC: 06HY33Z Insertion of Infusion Device into Lower Vein, Percutaneous Approach (ICD-10-PCS; 2017-12-23 15:31)
PROC: 5A1D70Z Performance of Urinary Filtration, Intermittent, Less than 6 Hours Per Day (ICD-10-PCS; 2017-12-23 15:31)
PROC: 0DB98ZX Excision of Duodenum, Via Natural or Artificial Opening Endoscopic, Diagnostic (ICD-10-PCS; 2017-12-23 15:31)
PROC: 0DB68ZX Excision of Stomach, Via Natural or Artificial Opening Endoscopic, Diagnostic (ICD-10-PCS; 2017-12-23 15:31)
PROC: 0DB38ZX Excision of Lower Esophagus, Via Natural or Artificial Opening Endoscopic, Diagnostic (ICD-10-PCS; 2017-12-23 15:31)
PROC: 02H633Z Insertion of Infusion Device into Right Atrium, Percutaneous Approach (ICD-10-PCS; 2017-12-23 15:31)
PROC: 30233N1 Transfusion of Nonautologous Red Blood Cells into Peripheral Vein, Percutaneous Approach (ICD-10-PCS; 2017-12-23 15:31)
DX: T80.211A Bloodstream infection due to central venous catheter, initial encounter (principal); A41.01 Sepsis due to Methicillin susceptible Staphylococcus aureus; G93.41 Metabolic encephalopathy; E43 Unspecified severe protein-calorie malnutrition; I82.B12 Acute embolism and thrombosis of left subclavian vein; K22.10 Ulcer of esophagus without bleeding; N18.6 End stage renal disease; I12.0 Hypertensive chronic kidney disease with stage 5 chronic kidney disease or end stage renal disease; D69.6 Thrombocytopenia, unspecified; R65.20 Severe sepsis without septic shock; I82.C12 Acute embolism and thrombosis of left internal jugular vein; I42.9 Cardiomyopathy, unspecified; I69.954 Hemiplegia and hemiparesis following unspecified cerebrovascular disease affecting left non-dominant side; I82.210 Acute embolism and thrombosis of superior vena cava; F03.90 Unspecified dementia, unspecified severity, without behavioral disturbance, psychotic disturbance, mood disturbance, and anxiety; I25.2 Old myocardial infarction; I25.10 Atherosclerotic heart disease of native coronary artery without angina pectoris; Y83.8 Other surgical procedures as the cause of abnormal reaction of the patient, or of later complication, without mention of misadventure at the time of the procedure; Y92.89 Other specified places as the place of occurrence of the external cause; E78.5 Hyperlipidemia, unspecified; E11.22 Type 2 diabetes mellitus with diabetic chronic kidney disease; E83.39 Other disorders of phosphorus metabolism; R62.7 Adult failure to thrive; E87.5 Hyperkalemia; D63.1 Anemia in chronic kidney disease; N40.0 Benign prostatic hyperplasia without lower urinary tract symptoms; K44.9 Diaphragmatic hernia without obstruction or gangrene; K20.9 Esophagitis, unspecified; K29.80 Duodenitis without bleeding; F20.9 Schizophrenia, unspecified; R11.10 Vomiting, unspecified; J44.9 Chronic obstructive pulmonary disease, unspecified; Z68.23 Body mass index [BMI] 23.0-23.9, adult; Z95.5 Presence of coronary angioplasty implant and graft
CPT/HCPCS: 36415; 36430; 70450; 71045; 72040; 80048; 80053; 80061; 80202; 80306; 82140; 82550; 82553; 82962; 83036; 83540; 83605; 83735; 84100; 84132; 84443; 84484; 85014; 85018; 85025; 85610; 85730; 86644; 86706; 86850; 86900; 86901; 86920; 87040; 87070; 87081; 87340; 88305; 88312; 90935; 92526; 92610; 93005; 93306; 93970; 94640; 94664; 96365; 96375; 99285-25; G0378